=== PATIENT | female | born 1960 | race Caucasian/White ===

== ENCOUNTER 2016-10-03 17:46 | Emergency (ER) | payer BC ==
[2016-10-03 20:50] LABS: WBC (NOT ORDERED) (RFLEX) 0 (0-5)
[2016-10-03 20:56] LABS: BASOPHILS 0.3 %; BASOPHILS ABSOLUTE 0.05 10/3/uL (0.0-0.16); EOSINOPHILS 1.8 %; EOSINOPHILS ABSOLUTE 0.28 10/3/uL (0.0-0.53); ER CBC TAT 0 Hrs 08 Mins; HEMATOCRIT 40.5 % (36.0-48.0); HEMOGLOBIN 13.6 g/dL (12.0-16.0); IMMATURE GRANULOCYTES 0.3 %; IMMATURE GRANULOCYTES ABSOLUTE 0.05 10/3/uL (0.0-0.11); MEAN CORPUS HGB CONC 33.6 g/dL (32.0-36.0); MEAN CORPUSCULAR HEMOGLOB 31.1 pg (26.0-34.0); MEAN CORPUSCULAR VOLUME 92.7 fL (80-100); MEAN PLATELET VOLUME 10.8 fL (9.2-13.0); MONOCYTES 7.5 %; MONOCYTES ABSOLUTE 1.15 10/3/uL (0.21-1.20); NEUTROPHILS 62.1 %; NEUTROPHILS ABSOLUTE 9.55 10/3/uL (2.02-8.40); PLATELET COUNT 348 10/3/uL (150-400); RED CELL COUNT 4.37 10/6/uL (4.0-5.6); WHITE BLOOD CELLS 15.4 10/3/uL (4.5-10.5)
[2016-10-03 20:57] LABS: MANUAL DIFF NO %
[2016-10-03 21:03] LABS: ASCORBIC ACID (UR NOT ORDER) 40 (NEG); BILIRUBIN, URINE NEGATIVE (NEG); ER URINALYSIS TAT 0 Hrs 15 Mins; INTERNATIONAL NORMAL RATI 1.1 UNITS (-); KETONE, URINE NEGATIVE (NEG); LEUKOCYTE ESTERASE(NOT OR NEG (NEG); NITRITE (URINE) NEG (NEG); PARTIAL THROMBO TIME 31.7 SEC (22.5-37.2)
[2016-10-03 21:11] LABS: ALBUMIN 4.1 G/DL (3.5-5.0); ALKALINE PHOSPHATASE 96 U/L (45-117); BUN (BLOOD UREA NITROGEN) 15 MG/DL (6-23); CHEST PAIN PROFILE TAT 0 Hrs 23 Mins; CHLORIDE, SERUM 105 MMOL/L (96-112); CO2 (CARBON DIOXIDE) 27 MMOL/L (24-34); CREATININE 0.93 MG/DL (0.55-1.02); GFR AFRICAN AMERICAN 79 ML/MIN (>=60); GFR NON AFRICAN AMERICAN 68 ML/MIN (>=60); GLUCOSE, SERUM 93 MG/DL (60-99); SGOT(AST) 15 U/L (5-40); SGPT(ALT) 25 U/L (5-65); SODIUM, SERUM 140 MMOL/L (135-148); TOTAL BILIRUBIN 0.3 MG/DL (0-1.2); TROPONIN I <0.02 NG/ML (<0.05)
[2016-10-03 21:12] LABS: DIRECT BILIRUBIN < 0.1 MG/DL (0.0-0.4); INDIRECT BILIRUBIN(NOT ORDER) 0.2 MG/DL (0.1-0.9)
== END 2016-10-03 23:58 | disposition home or self-care (01) ==
LOC: ER 17:46
PROVIDERS: Emergency Medicine
DX: R55 Syncope and collapse (principal); R10.9 Unspecified abdominal pain; D72.829 Elevated white blood cell count, unspecified
CPT/HCPCS: 74177; 80048; 80076; 81001; 83605; 83690; 83735; 84484; 85025; 85610; 85730; 93005; 99285; Q9967